=== PATIENT | female | born 1960 ===

== ENCOUNTER 2023-11-27 18:49 | Inpatient (IN) | payer OTHER ==
[~2023-11-27] VITALS: Ht 167.6 cm; Wt 70.8 kg
[2023-11-27] MEDS ORDERED: ENALAPRIL MALEA10 MG (19:32)
[2023-11-27] MEDS ORDERED: BENZONATATE 100 MG CAPSULE PO STA (21:19)
[2023-11-27] MEDS ORDERED: ACETAMINOPHEN 500 MG GEL..CAP PO STA (21:20)
[2023-11-27] MEDS ORDERED: 0.9 % SODIUM CHLORIDE 1,000 ML IV STA (21:20)
[2023-11-27 22:09] LABS: URINE APPEARANCE Cloudy; URINE BILIRRUBIN Negative (NEGATIVE); URINE BLOOD Negative; URINE COLOR Dark Yellow; URINE GLUCOSE Negative (NEGATIVE); URINE LEUKOCYTE Small; URINE NITRATE Negative; URINE PROTEIN Negative (NEGATIVE)
[2023-11-27 22:10] LABS: URINE BACTERIA 1259.8 uL (0.0-1933); URINE EPITHELIAL CELLS 22.7 uL (0.0-38.8); URINE RBC 7.7 uL (0.0-20.8)
[2023-11-27 22:20] LABS: URINE UROBILINOGEN >= 8.0 E.U./dl
[2023-11-27 22:24] LABS: ALBUMIN 2.9 gm/dL (3.4-5.0); BILIRUBIN TOTAL 1.47 mg/dL (0.3-1.2); CALCIUM 8.1 mg/dL (8.5-10.1); CREATININE SERUM 0.58 mg/dL (0.70-1.30); GFR 141.5; GLOBULINA 4.5 G/DL (2.4-3.5); POTASSIUM 3.21 mEq/L (3.5-5.1); TOTAL PROTEIN 7.4 gm/dL (6.4-8.2)
[2023-11-28 00:53] LABS: HEMATOCRIT 30.9 % (39.0-48.0); MEAN CELL VOLUME 104.5 fL (80.0-100.00); MEAN CORPUSCULAR HEMOGLOBIN 37.2 pg (27.00-32.0); MEAN CORPUSCULAR HGB CONC 35.6 g/dl (32.0-36.0); PLATELET COUNT 44 K/uL (150-450); RED BLOOD COUNT 2.96 M/uL (4.00-6.00)
[2023-11-28] MEDS ORDERED: GUAIFENESIN/DEXTROMETHORPHAN 100 MG/5 ML ML PO SCH (02:16)
[2023-11-28] MEDS ORDERED: GUAIFENESIN/DEXTROMETHORPHAN 100 MG/5 ML ML PO STA (02:16)
[2023-11-28] MEDS ORDERED: ACETAMINOPHEN 500 MG GEL..CAP PO STA (02:16)
[2023-11-28] MEDS ORDERED: ACETAMINOPHEN 500 MG GEL..CAP PO SCH (02:17)
[2023-11-28 06:32] LABS: HEMATOCRIT 37.2 % (39.0-48.0); HEMOGLOBIN 13.1 g/dL (13-16.00); MEAN CELL VOLUME 104.6 fL (80.0-100.00); MEAN CORPUSCULAR HEMOGLOBIN 36.8 pg (27.00-32.0); MEAN CORPUSCULAR HGB CONC 35.2 g/dl (32.0-36.0); RED BLOOD COUNT 3.56 M/uL (4.00-6.00); RED CELL DISTRIBUTION WIDTH 13.7 % (11.5-14.5)
[2023-11-28 06:44] LABS: PLATELET COUNT 50 K/uL (150-450)
[2023-11-28] MEDS ORDERED: 0.9 % SODIUM CHLORIDE 1,000 ML IV SCH (08:00)
[2023-11-28] MEDS ORDERED: METHYLPREDNISOLONE SOD SUCC 40 MG VIAL IV ONE (08:15)
[2023-11-28] MEDS ORDERED: ACETAMINOPHEN 500 MG GEL..CAP PO PRN (08:15)
[2023-11-28] MEDS ORDERED: PANTOPRAZOLE SODIUM 40 MG/VIAL VIAL IV PUSH SCH (09:00)
[2023-11-29 03:04] LABS: URINE APPEARANCE Clear; URINE BILIRRUBIN Negative (NEGATIVE); URINE BLOOD Negative; URINE COLOR Yellow; URINE GLUCOSE Negative (NEGATIVE); URINE LEUKOCYTE Negative; URINE NITRATE Negative; URINE PROTEIN Negative (NEGATIVE)
[2023-11-29 03:08] LABS: URINE BACTERIA 127.1 uL (0.0-1933); URINE EPITHELIAL CELLS 4.4 uL (0.0-38.8); URINE WBC 12.8 uL (0.0-23.2)
[2023-11-29 03:13] LABS: URINE RBC 0.2 uL (0.0-20.8)
[2023-11-29 03:17] LABS: HEMATOCRIT 38.2 % (39.0-48.0); HEMOGLOBIN 13.3 g/dL (13-16.00); MEAN CELL VOLUME 104.2 fL (80.0-100.00); MEAN CORPUSCULAR HEMOGLOBIN 36.3 pg (27.00-32.0); MEAN CORPUSCULAR HGB CONC 34.8 g/dl (32.0-36.0); RED BLOOD COUNT 3.66 M/uL (4.00-6.00); RED CELL DISTRIBUTION WIDTH 13.6 % (11.5-14.5)
[2023-11-29 03:18] LABS: PLATELET COUNT 47 K/uL (150-450)
[2023-11-29 03:37] LABS: INR 1.47; PARTIAL THROMBOPLASTIN TIME 30.7 SECONDS (22.0-34.0)
[2023-11-29 03:41] LABS: ALBUMIN 2.7 gm/dL (3.4-5.0); BILIRUBIN TOTAL 0.95 mg/dL (0.3-1.2); BILIRUBIN,CONJUGATED 0.54 mg/dL (0.0-0.2); BILIRUBIN,UNCONJUGATED 0.41 mg/dL (0.0-0.6); CALCIUM 7.8 mg/dL (8.5-10.1); CHOL HDL RATIO 6.4 (0-5.0); CREATININE SERUM 0.66 mg/dL (0.70-1.30); GFR 121.9; GLOBULINA 4.5 G/DL (2.4-3.5); POTASSIUM 3.41 mEq/L (3.5-5.1); T4 FREE 1.18 NG/ML (0.76-1.46); TOTAL PROTEIN 7.2 gm/dL (6.4-8.2); TSH 0.967 uIU/mL (0.358-3.74)
[2023-11-29] MEDS ORDERED: CEFTRIAXONE SODIUM 2,000 MG VIAL IV SCH (12:56)
[2023-11-30 06:15] LABS: HEMATOCRIT 36.1 % (39.0-48.0); HEMOGLOBIN 12.6 g/dL (13-16.00); MEAN CELL VOLUME 104.5 fL (80.0-100.00); MEAN CORPUSCULAR HEMOGLOBIN 36.5 pg (27.00-32.0); MEAN CORPUSCULAR HGB CONC 34.9 g/dl (32.0-36.0); RED BLOOD COUNT 3.45 M/uL (4.00-6.00); RED CELL DISTRIBUTION WIDTH 13.9 % (11.5-14.5)
[2023-11-30 06:28] LABS: PLATELET COUNT 46 K/uL (150-450)
[2023-12-01 06:37] LABS: HEMATOCRIT 37.6 % (39.0-48.0); HEMOGLOBIN 13.1 g/dL (13-16.00); MEAN CORPUSCULAR HEMOGLOBIN 35.9 pg (27.00-32.0); MEAN CORPUSCULAR HGB CONC 34.9 g/dl (32.0-36.0); RED BLOOD COUNT 3.65 M/uL (4.00-6.00)
[2023-12-01 07:58] LABS: PLATELET COUNT 50 K/uL (150-450)
== END 2023-12-01 20:43 | disposition home or self-care (01) | DRG 866 ==
LOC: ER 18:49 → MEDI 11-28 08:16 → SEC-K 11-28 08:16 → EDSEX 11-28 08:16 → MEDI 11-28 15:01
PROVIDERS: General Practice; ADMIT Internal Medicine; ATTEND Internal Medicine
PROC: BW40ZZZ Ultrasonography of Abdomen (ICD-10-PCS; principal; 2023-11-29)
DX: A90 Dengue fever [classical dengue] (principal); D69.6 Thrombocytopenia, unspecified; K76.89 Other specified diseases of liver; R16.2 Hepatomegaly with splenomegaly, not elsewhere classified; R74.01 Elevation of levels of liver transaminase levels; F10.90 Alcohol use, unspecified, uncomplicated; Y90.9 Presence of alcohol in blood, level not specified